=== PATIENT | female | born 1965 | race African-American/Black ===

== ENCOUNTER 2017-01-08 05:57 | Inpatient (IN) | payer BC ==
[~2017-01-08] VITALS: Ht 172.7 cm; Wt 99.8 kg
[2017-01-08] MEDS ORDERED: oxyCODONE HCL SR 20MG TAB.SR.12H PO ONE (06:06)
[2017-01-08] MEDS ORDERED: ACETAMINOPHEN 325 MG TABLET ONE (06:08)
[2017-01-08] MEDS ORDERED: KETOROLAC TROMETHAMINE INJ 30 MG/ML VIAL ONE (06:08)
[2017-01-08] MEDS ORDERED: CELECOXIB 100 MG CAPSULE ONE (06:08)
[2017-01-08] MEDS ORDERED: HEMOSTATIC MATRIX 10 ML 1 EACH PAD MC ONE (06:50)
[2017-01-08] MEDS ORDERED: BUPIVACAINE 0.5 % PF 150 MG/30 ML VIAL ONE (06:50)
[2017-01-08] MEDS ORDERED: methylPREDNISolone ACETATE 80 MG/ML VIAL ONE (06:51)
[2017-01-08] MEDS ORDERED: PROPOFOL 200 ML IV ONE (07:08)
[2017-01-08] MEDS ORDERED: HYDROMORPHONE INJ 2 MG/ML DISP.SYRIN ONE (07:09)
[2017-01-08] MEDS ORDERED: FENTANYL PF 100MCG/2ML AMPUL ONE (07:09)
[2017-01-08] MEDS ORDERED: MIDAZOLAM HCL 2 MG/2ML VIAL ONE (07:09)
[2017-01-08] MEDS ORDERED: SUCCINYLCHOLINE CHLORIDE 20 MG/ML VIAL ONE (07:09)
[2017-01-08] MEDS ORDERED: CEFAZOLIN SODIUM/DEXTROSE,ISO 50 ML IV ONE (07:53)
[2017-01-08 08:22] VITALS: BP 110/75
[2017-01-08] MEDS ORDERED: IV D5/0.45 NACL 1,000 ML IV PRN (10:30)
[2017-01-08] MEDS ORDERED: HYDROCODONE/APAP 10/325MG 1 EA TABLET PO PRN (10:30)
[2017-01-08 12:00] VITALS: BP 138/76
--- NOTE | 2017-01-08 12:11 | NUR ---
MS/RN NOTES RECEIVED PATENT FROM DAY SURGERY FOR CERVICAL DISC ARTHROPLASTY. PATIENT STABLE, NO S/S OF DISTRESS/DISCOMFORT NOTED. RESPIRATIONS EVEN AND UNLABORED, ON 02 AT 2L VIA NC. VITAL SIGNS STABLE WITHIN NORMAL LIMITS. IV FLUIDS INFUSING WELL. PATIENT DENIES PAIN AT THIS TIME, NECK COLLAR IN PLACE FOR CERVICAL STABILITY. ORDERS RECEIVED AND PROCESSED. SON AT BEDSIDE. NEXT DOSE OF ANCEF AT 1600. PATIENT ANXIOUS TO BE DISCHARGE TODAY LATER IN THE EVENING. WILL CONTINUE TO MONITOR PATIENT.
[2017-01-08] MEDS: HYDROCODONE/APAP 10/325MG 1 EA TABLET PO PRN ×2 (13:02→16:47)
[2017-01-08] MEDS ORDERED: ANESTHESIA TRAY IN PYXIS 1 EA TRAY MC ONE (13:47)
--- NOTE | 2017-01-08 14:10 | NUR ---
MS/RN NOTES PATIENT RESTING IN BED, COMFORTABLE NO S/S OF DISTRESS/DISCOMFORT. PAIN MANAGED WITH NORCO 10-325MG 1 TAB FOR MILD PAIN AND 2 TABS FOR MODERATE. PROVIDED PATIENT WITH INSTRUCTIONS ON POST OP CARE, INSTRUCTED PATIENT TO KEEP HEAD AND NECK ALIGNED TO PREVENT INJURY, RE KEEP NECK COLLAR ON FOR STABILITY. INSTRUCTED ON PROPER PAIN MANAGEMENT TO TAKE MEDICATIONS ROUTINELY. PATIENT VERBALIZED UNDERSTANDING.
[2017-01-08] MEDS ORDERED: METHYLENE BLUE AMP (1ML) 1 ML AMPUL ONE (14:40)
[2017-01-08] MEDS ORDERED: LIDOCAINE 1%-EPI 1:100,000 50 ML VIAL IJ ONE (14:40)
[2017-01-08] MEDS ORDERED: ANCEF 1 GM/50 ML D5W IV ONE ×2 (16:00)
[2017-01-08 16:39] VITALS: BP 115/62
--- NOTE | 2017-01-08 19:09 | NUR ---
MS/RN NOTES ALL DISCHARGE FORMS COMPLETED, SIGNED COPIED AND PROVIDED TO PATIENT. DISCHAGE INSTRUCTIONS GIVEN INSTRUCTED PATIENT ON POST OP MANAGEMENT AND CARE. FAXED OVER PRESCRIPTION TO PHARMACY AND PROVIDED HARD COPY TO PATIENT. PATIENT VERBALIZED ALL D/C INSTRUCTIONS GIVEN, LAST DOSE OF ANCEF RECEIVED PRIOR TO D/C. IV REMOVED AND COVERED PROPERLY. PATIENT LEFT WITH SON VIA PRIVATE CAR.
== END 2017-01-08 18:45 | disposition home or self-care (01) | DRG 518 ==
LOC: DS 05:57 → MED 12:49
PROVIDERS: ADMIT Specialist; ATTEND Specialist
PROC: 0RR30JZ Replacement of Cervical Vertebral Disc with Synthetic Substitute, Open Approach (ICD-10-PCS; principal; 2017-01-08 07:30)
DX: M50.222 Other cervical disc displacement at C5-C6 level (principal)
CPT/HCPCS: 36415; 72040-TC; 86850-TC; 87081-TC; 88304-TC; 88305-TC; 88311-TC; J0330; J0690; J1040; J1100; J1170; J1885; J2250; J2405; J2704; J3010; J3490; J7060; Q9968